=== PATIENT | male | born 1955 | race Caucasian/White ===

== ENCOUNTER 2019-01-01 12:58 | Inpatient (IN) | payer OTHER, MEDICARE ==
[~2019-01-01] VITALS: Ht 182.9 cm; Wt 95.0 kg
[~2019-01-01 12:58] MED LIST: ASCO500 PO; ASPI81CH PO; BUPR100ER PO; CYAN1000I IM; CYCL10 PO; Dyazide 37.5-21 EACH PO; FISH OIL 500 M1 EAC1; ISOMON20 PO; LAMO100 PO; METO25; NITR.6SL SL; Omeprazole20 M1 PO; QUET100 PO
[2019-01-01 13:20] LABS: Calcium, Ionized (POC) 1.12 mmol/L (1.10-1.46); Chloride (POC) 106 mmol/L (98-108); Glucose (ISTAT POC) 150 mg/dL (70-99); Hemoglobin (POC) 12.6 g/dL (13.5-17.5); Sodium (POC) 140 mmol/L (135-148); Total CO2 (POC) 21 mmol/L (21-32)
[2019-01-01 13:23] LABS: BASOPHILS ABSOLUTE AUTO 0.13 K/mm3 (0.00-0.23); BASOPHILS PERCENT AUTO 1 % (0-2); EOSINOPHILS ABSOLUTE AUTO 0.27 K/mm3 (0.00-0.68); EOSINOPHILS PERCENT AUTO 2 % (0-6); Hematocrit 36.8 % (37.0-53.0); Hemoglobin 12.1 g/dL (13.5-17.5); IMMATURE GRAN ABSOLUTE AUTO 0.07 K/mm3 (0.00-0.10); IMMATURE GRAN PERCENT AUTO 1 % (0-1); LYMPHOCYTES ABSOLUTE AUTO 5.36 K/mm3 (0.84-5.20); LYMPHOCYTES PERCENT AUTO 36 % (21-46); MONOCYTES ABSOLUTE AUTO 1.42 K/mm3 (0.16-1.47); MONOCYTES PERCENT AUTO 10 % (4-13); Mean Corpuscular HGB 27.4 pg (26.0-34.0); Mean Corpuscular HGB Conc 32.9 g/dL (31.5-36.5); Mean Corpuscular Volume 83 fL (80-100); Mean Platelet Volume 11.2 fL (9.1-12.4); NEUTROPHILS ABSOLUTE AUTO 7.55 K/mm3 (1.96-9.15); NEUTROPHILS PERCENT AUTO 51 % (41-73); Platelet Count 340 K/mm3 (150-400); RDW Standard Deviation 42.8 fL (35.1-46.3); Red Blood Cell Count 4.41 M/mm3 (4.30-5.90)
[2019-01-01 13:41] LABS: Prothrombin Time Results 10.6 Sec (9.7-11.5)
[2019-01-01 13:49] LABS: Alanine Aminotransfer (ALT/SGP 22 U/L (12-78); Albumin/Globulin Ratio 1.1 (0.8-1.8); Alk Phos 80 U/L (50-136); Anion Gap 11 mmol/L (6-16); Aspartate Aminotrans (AST/SGOT 12 U/L (12-37); Bilirubin, Total 0.3 mg/dL (0.1-1.0); Blood Urea Nitrogen 14 mg/dL (8-24); Bun/Creatinine Ratio 14.9 (12.0-20.0); CO2, Blood 21 mmol/L (21-32); Calcium, Blood 9.1 mg/dL (8.5-10.1); Chloride, Blood 110 mmol/L (98-108); Creatinine, Blood 0.94 mg/dL (0.60-1.20); Globulin, Blood 3.8 g/dL (2.2-4.0); Glomerular Filtration Rate >60 (60-); Glucose, Blood 146 mg/dL (70-99); Sodium, Blood 142 mmol/L (136-145); Total Protein, Blood 7.8 g/dL (6.4-8.2); Troponin I <0.015 ng/mL (0.000-0.040)
[2019-01-01] MEDS ORDERED: QUET300 PO (15:32)
--- NOTE | 2019-01-01 16:42 | NUR ---
Echocardiogram completed.
[2019-01-01] MEDS ORDERED: Flonase 0.05% N16 GM (17:13)
[2019-01-01] MEDS ORDERED: Dyazide 37.5-21 EACH PO (17:17)
[2019-01-01] MEDS ORDERED: Loratadine10 MG PO (17:18)
[2019-01-01] MEDS ORDERED: METO25 PO (17:19)
[2019-01-01] MEDS ORDERED: SIME80CH PO (17:20)
--- NOTE | 2019-01-01 18:40 | NUR ---
PT ARRIVED TO UNIT @ 1454, DENIES CP AND SOB. TR TO R RADIAL, SITE WNL PT DENIES PAIN. PT ARRIVED ON 6L O2 PER NC WITH 02 SAT 96%, O2 DECREASED TO 3L AND SATURATIONS MAINTAINED 95-97% AT WHICH TIME PT WAS PLACED ON RA. TR ASSESSED Q15 MINUTES X4, Q30 MINUTES X2, SITE REMAINED WNL. AT 1700 3 CC'S OF AIR FROM TR BAND REMOVED, AT 1710 AN ADDITIONAL 3 CC'S OF AIR WAS REMOVED, SITE BEGAN TO OOZE AND 3 CC'S OF AIR WAS REINSTILLED. TR BAND IN PLACE WITH 7 CC'S OF AIR.
--- NOTE | 2019-01-01 18:44 | NUR ---
PT C/O CHEST PRESSURE TO EPIGASTRIC AREA 05/09. PT VERY ANXIOUS APPEARING, RESTLESS IN BED, TAPPING FEET/LEGS. DR WADSWORTH NOTIFIED. HOME MED SEROQUEL ORDERED. PT W SOME HTN.
--- NOTE | 2019-01-01 19:30 | NUR ---
ASSUMED CARE OF PT, REPORT RCV'D FROM ERIK RN. PT ALERT AND ORIENTED. TR BAND ON RIGHT WRIST WITH ARMBOARD. RADIAL SIGHT OOZING, PER DAYSHIFT NURSE PT'S RADIAL SITE HAS CONSITENTLY OOZED REQUIRING AIR TO BE REINFLATED IN TR BAND. PT REMINDED TO KEEP RIGHT ARM STILL/STRAIGHT. RADIAL SITE CLEANED AND NEW ARMBOARD PLACED TO CONTINUE TO MONITOR. DISTAL PULSES/PALLOR WNL. PT IS FIDGETY AT BASELINE. REPORTS 1/10 EPIGASTRIC PAIN AND FEELS "ACHES" T/O BODY. KCL INFUSING AND NS @ 200 ML/HR UNTIL 0000. SEE FULL SHIFT ASSESSMENT.
--- NOTE | 2019-01-01 21:35 | NUR ---
PHONE CALL TO DR. SERRATO REGARDING PT'S CONTINUED "ACHE/PAIN" AND OOZING FROM RIGHT RADIAL SITE WITH TR BAND STILL IN PLACE. . PT REPORTS PAIN IN SHOULDERS AND UNCHANGED EPIGASTRIC PAIN. ORDERS FOR MAALOX, XANAX, NORVASC, AND NITROPASTE GIVEN WITH FENTANYL PRN IF NEEDED.
--- NOTE | 2019-01-02 01:47 | NUR ---
PT STILL C/O SHOULDER "DISCOMFORT" L>R. PT OFFERED WARM BLANKETS AND REPOSITIONING. PT STATES THAT HE "MIGHT JUST BE THE BED" AND DECLINED MEDICATION AT THIS TIME. TR BAND OFF, CLEAR DRESSING APPLIED. SITE SOFT WITH SMALL HEMATOMA, NO EVIDENCE OF BLEEDING, NO REPORTED TENDERNESS. DISTAL PULSES/PALLOR WNL.
[2019-01-02 03:25] LABS: BASOPHILS ABSOLUTE AUTO 0.04 K/mm3 (0.00-0.23); BASOPHILS PERCENT AUTO 0 % (0-2); EOSINOPHILS PERCENT AUTO 1 % (0-6); Hematocrit 33.2 % (37.0-53.0); Hemoglobin 10.7 g/dL (13.5-17.5); IMMATURE GRAN ABSOLUTE AUTO 0.04 K/mm3 (0.00-0.10); IMMATURE GRAN PERCENT AUTO 0 % (0-1); LYMPHOCYTES ABSOLUTE AUTO 2.69 K/mm3 (0.84-5.20); LYMPHOCYTES PERCENT AUTO 21 % (21-46); MONOCYTES ABSOLUTE AUTO 1.13 K/mm3 (0.16-1.47); MONOCYTES PERCENT AUTO 9 % (4-13); Mean Corpuscular HGB 26.6 pg (26.0-34.0); Mean Corpuscular HGB Conc 32.2 g/dL (31.5-36.5); Mean Corpuscular Volume 82 fL (80-100); Mean Platelet Volume 10.7 fL (9.1-12.4); NEUTROPHILS PERCENT AUTO 69 % (41-73); Platelet Count 264 K/mm3 (150-400); RDW Coefficient Variation 14.1 % (11.7-14.2); RDW Standard Deviation 42.5 fL (35.1-46.3); Red Blood Cell Count 4.03 M/mm3 (4.30-5.90)
[2019-01-02 03:41] LABS: Alanine Aminotransfer (ALT/SGP 47 U/L (12-78); Albumin, Blood 3.4 g/dL (3.4-5.0); Albumin/Globulin Ratio 1.1 (0.8-1.8); Alk Phos 74 U/L (50-136); Anion Gap 7 mmol/L (6-16); Aspartate Aminotrans (AST/SGOT 199 U/L (12-37); Bilirubin, Total 0.5 mg/dL (0.1-1.0); Blood Urea Nitrogen 10 mg/dL (8-24); Bun/Creatinine Ratio 11.7 (12.0-20.0); CO2, Blood 24 mmol/L (21-32); Calcium, Blood 8.2 mg/dL (8.5-10.1); Chloride, Blood 111 mmol/L (98-108); Creatinine, Blood 0.85 mg/dL (0.60-1.20); Globulin, Blood 3.2 g/dL (2.2-4.0); Glomerular Filtration Rate >60 (60-); Glucose, Blood 113 mg/dL (70-99); Potassium, Blood 3.4 mmol/L (3.5-5.5); Sodium, Blood 142 mmol/L (136-145); Total Protein, Blood 6.6 g/dL (6.4-8.2)
--- NOTE | 2019-01-02 06:02 | NUR ---
SHIFT SUMMARY PT REPORTS EPIGASTRIC AND SHOULDER PAIN AND APPEARED FIDGETY T/O NIGHT. PAIN WAS FINALLY RELIEVED WITH 25 MG IV FENTANYL AND PT ABLE TO REST. MORNING EKG SHOWS IMPROVEMENT FROM PRE-INTERVENTION EKG. RIGHT RADIAL ACCESS SITE SOFT/NON-TENDER WITH NO SIGNS OF OOZING. ARMBOARD REMAINS IN PLACE AND PT REMINDED TO KEEP WRIST STRAIGHT. VSS T/O SHIFT. 1000 ML OF CLEAR YELLOW URINARY OUTPUT. SEE PREVIOUS NOTES FROM THIS SHIFT. WILL REPORT TO DAYSHIFT NURSE.
--- NOTE | 2019-01-02 09:30 | NUR ---
PT SLEEPING THIS AM AT 0715, VSS. PT AWOKE AT 0830 WITH C/O PAIN 6/10 TO RIGHT UPPER ARM AND FOREARM. AREA FIRM AND SLIGHTLY SWOLLEN. LEFT ARM WNL. NO REDNESS OR WARMTH NOTED TO RIGHT ARM. PT DENIED C/O NUMBNESS/TINGLING TO RIGHT HAND. 2+ AXILLARY, BRACHIAL, AND RADIAL PULSE. DR WADSWORTH IN TO SEE PT WITHIN MIN OF PHONE CALL. FENT AND VENOUS DOPPLER ORDERED. RIGHT JOELLEN TO RIGHT ARM X30MIN PER DR HU. ULTRA SOUND TECH AT BEDSIDE NOW. FENT DID OFFER RELIEF.
--- NOTE | 2019-01-02 10:51 | NUR ---
ASSUMPTION OF CARE I ASSUMED CARE OF PT AT 0700. PT SLEEPING, VSS. AT APPROX 0830 PT AWOKE COMPLAINING OF ARM PAIN (SEE ARUN GRIGGS RN NOTE). PT A&O x4, DENIES CP/SOB. R ARM TENDER AND FIRM TO TOUCH, NO REDNESS OR WARMTH NOTED. JOELLEN WRAP APPLIED PER DR WADSWORTH, BANDAGE IN PLACE X30 MINUTES AND ELEVATED, REMOVED FOR APPROX 15 MINUTES FOR US AND THEN RE-APPLIED. PT VERBALIZES RELEIF WITH PRESSURE FROM JOELLEN BANDAGE. WARM BLANKETS APPLIED TO ARM. R ARM REMAINES WRAPPED AND ELEVATED AT THIS TIME. PT RESTING IN ROOM WITH EYES CLOSED, DENIES DISCOMFORT AT THIS TIME. DR WADSWORTH CALLED TO CHECK ON PT, WILL SEE THIS AFTERNOON.
--- NOTE | 2019-01-02 11:28 | NUR ---
PT COMPLAINS OF NAUSEA. DENIES CP/SOB, VSS. R ARM REMAINS TENDER. PT DECLINES SODA AND CRACKERS. EMESIS BAG PROVIDED. PROVIDER PLANS ON SEEING PT EARLY THIS AFTERNOON, WILL CALL PROVIDER IF NAUSEA WORSENS.
--- NOTE | 2019-01-02 12:42 | NUR ---
PT STS NAUSEA PERSISTS, DECLINES AVAILABLE ZOFRAN PRN. PT STS HE "JUST WANTS TO BE LEFT ALONE." PT RESTING WITH EYES CLOSED AT THIS TIME.
--- NOTE | 2019-01-02 13:48 | NUR ---
IN TO SEE PT AT APPROX 1315, PT ACCEPTED ZOFRAN FOR NAUSEA AT THIS TIME. PT STS HAS HEADACHE AND REQUESTS TYLENOL, PRN ADMINISTERED AT THIS TIME. DR WADSWORTH IN TO SEE PT AT 1345, POSSIBLE STATUS CHANGE.
--- NOTE | 2019-01-02 14:57 | NUR ---
ARRIVAL. PT ARRIVED TO UNIT APPROX. 1415 FROM ICU VIA WHEELCHIR. PEER STAFF WERE ABLE TO GET PT SETTLED INTO ROOM. ASSESSMENT FINDINGS REMAIN UNCHANED FROM PREVIOUSLY NOTED ASSESSMENT. ASSESSED PT RIGHT ARM. JOELLEN BANDAGE REMAINS IN PLACE. ARM SOFT WITH PALPITATION AND NON TENDER. PT REPORTS THIS ARM WAS HARD WITH PALPITATION THIS MORNING. PT CURRENTLY IN BED. BED IN LOW POSITION, CALL LIGHT IN REACH AND PT DENIES ANY NEEDS WILL CONTINUE TO MONITOR.
--- NOTE | 2019-01-02 15:26 | NUR ---
REPORT GIVEN TO [facility] RN AT APPROX 1415. PT TRANSPORTED BY WHEELCHAIR IN STABLE CONDITION TO [facility] @ APPROX 1430.
--- NOTE | 2019-01-02 17:46 | NUR ---
SHIFT SUMMARY PT PLESANT, COOPERATIVE AND USES CALL LIGHT APPROPRAITELY. PT REMAINS A&OX4. ASSESSMENT FINDINGS REMAIN UNCHANGED SINCE ARRIVAL TO UNIT. PT ABLE TO EAT SOME OF DINNER AND TOLERATED WELL. PT ABLE TO AMBULATE IN ROOOM AND TOLERATED WELL. FAMILY AT BEDSIDE INTERMITTENTLY. TEGADERM DRESSING REMAINS IN PLACE OVER RIGHT RADIAL SITE. RIGHT ARM REMAINS NON TENDER WITH PALPITATION AND SOFT. BED IN LOW POSITION, CALL LIGHT IN REACH AND PT DENIES ANY NEEDS. WILL CONTINUE TO MONITOR UNITL HANDOFF TO NIGHTSHIFT RN.
--- NOTE | 2019-01-03 04:42 | NUR ---
SHIFT SUMMARY: PATIENT RADIAL SITE IS C/D/I AND MUCH IMPROVED. PATIENT DENIES PAIN AND ALL VSS. PATIENT CALL LIGHT WITHIN REACH AND USED APPROPRIATLY, BED LOW AND LOCKED.
--- NOTE | 2019-01-03 07:00 | NUR ---
REPORT FROM MIGUEL DUNHAM. ASSUMED PT CARE.
--- NOTE | 2019-01-03 07:55 | NUR ---
VSS. ASSESSMENT CHARTED.
--- NOTE | 2019-01-03 08:55 | NUR ---
PT MEDICATED PER EMAR. NADN. DENIES PAIN.
--- NOTE | 2019-01-03 09:15 | NUR ---
PROVIDER AT BEDSIDE. PLAN TO DC PT TODAY.
--- NOTE | 2019-01-03 11:00 | NUR ---
BOTH IVS REMOVED AND DRESSINGS PLACED. PT TAKEN OFF TELE. SUPPLIES PROVIDED TO PT FOR SHOWER.
[2019-01-03] MEDS ORDERED: ASPI81CH PO (11:27)
[2019-01-03] MEDS ORDERED: ATOR40TA PO (11:28)
[2019-01-03] MEDS ORDERED: BRILINTA90 MG PO (11:29)
--- NOTE | 2019-01-03 11:55 | NUR ---
PT BACK TO BED FOLLOWING SHOWER. DRESSED IN STREET CLOTHES. STATES HE FEELS TERRIBLE AND IS DIZZY. VS CHARTED, CHARGE NURSE MADE AWARE OF HYPOTENSION. WILL CONT TO MONITOR PRIOR TO DC.
--- NOTE | 2019-01-03 12:50 | NUR ---
VSS. PT STATES HE FEELS MUCH BETTER. WILL CONT TO MONITOR. PLAN TO DC PT AROUND 1400 WHEN HIS FRIEND GETS HERE. PT AGREEABLE.
--- NOTE | 2019-01-03 14:16 | NUR ---
PT VSS. DC REVIEWED.
== END 2019-01-03 14:29 | disposition home or self-care (01) | DRG 247 ==
LOC: ER 12:58 → ICUW 12:59 → PCU 13:17 → ICUW 14:56 → PCU 01-02 14:35
PROVIDERS: Emergency Medicine; Internal Medicine Interventional Cardiology; ADMIT Internal Medicine Interventional Cardiology
PROC: 027034Z Dilation of Coronary Artery, One Artery with Drug-eluting Intraluminal Device, Percutaneous Approach (ICD-10-PCS; principal; 2019-01-01)
PROC: 02703ZZ Dilation of Coronary Artery, One Artery, Percutaneous Approach (ICD-10-PCS; 2019-01-01)
PROC: B2111ZZ Fluoroscopy of Multiple Coronary Arteries using Low Osmolar Contrast (ICD-10-PCS; 2019-01-01)
DX: I21.3 ST elevation (STEMI) myocardial infarction of unspecified site (principal); I25.10 Atherosclerotic heart disease of native coronary artery without angina pectoris; K22.70 Barrett's esophagus without dysplasia; G89.29 Other chronic pain; M54.9 Dorsalgia, unspecified; E78.5 Hyperlipidemia, unspecified; F31.9 Bipolar disorder, unspecified; I10 Essential (primary) hypertension; J44.9 Chronic obstructive pulmonary disease, unspecified; Z79.82 Long term (current) use of aspirin; Z87.891 Personal history of nicotine dependence
CPT/HCPCS: 36415; 80047; 80053; 84484; 85014; 85025; 85347; 85610; 85730; 93005; 93010; 93306; 93454; 93971; 96374; 96375; 99152; 99153; 99285-25; A9270; C1725; C1769; C1874; C1887; C1894; C9606; J0461; J1644; J2250; J2270; J2405; J3010; J3246; J3480; J7030; Q9967

== ENCOUNTER 2020-07-30 23:13 | Observation (INO) | payer OTHER ==
[~2020-07-30] VITALS: Ht 182.9 cm; Wt 90.6 kg
[~2020-07-30 23:13] MED LIST changes: +ATOR40TA PO; +BRILINTA90 MG PO; +Flonase 0.05% N16 GM; +Loratadine10 MG PO; +METO25 PO; +QUET300 PO; +SIME80CH PO
[2020-07-30 23:30] LABS: Calcium, Ionized (POC) 1.04 mmol/L (1.10-1.46); Chloride (POC) 105 mmol/L (98-108); Creatinine (POC) 1.3 mg/dL (0.8-1.3); Glucose (ISTAT POC) 163 mg/dL (70-99); Hemoglobin (POC) 10.2 g/dL (13.5-17.5); Potassium (POC) 3.5 mmol/L (3.5-5.5); Sodium (POC) 137 mmol/L (135-148); Total CO2 (POC) 21 mmol/L (21-32)
[2020-07-30 23:39] LABS: Hemoglobin 8.9 g/dL (13.5-17.5); Mean Corpuscular HGB 20.3 pg (26.0-34.0); Mean Corpuscular HGB Conc 29.7 g/dL (31.5-36.5); Mean Corpuscular Volume 69 fL (80-100); Mean Platelet Volume 10.3 fL (9.1-12.4); Platelet Count 363 K/mm3 (150-400); RDW Coefficient Variation 21.3 % (11.7-14.2); RDW Standard Deviation 52.1 fL (35.1-46.3); Red Blood Cell Count 4.38 M/mm3 (4.30-5.90); White Blood Cell Count 10.65 K/mm3 (4.00-11.30)
[2020-07-30 23:54] LABS: Alanine Aminotransfer (ALT/SGP 22 U/L (12-78); Albumin, Blood 3.7 g/dL (3.4-5.0); Albumin/Globulin Ratio 1.1 (0.8-1.8); Alk Phos 73 U/L (50-136); Anion Gap 8 mmol/L (6-16); Aspartate Aminotrans (AST/SGOT 12 U/L (12-37); Bilirubin, Total 0.3 mg/dL (0.1-1.0); Blood Urea Nitrogen 13 mg/dL (8-24); Bun/Creatinine Ratio 12.1 (12.0-20.0); CHOL/HDL RATIO 5.7; CO2, Blood 22 mmol/L (21-32); Calcium, Blood 8.1 mg/dL (8.5-10.1); Chloride, Blood 108 mmol/L (98-108); Cholesterol 189 mg/dL (50-200); Creatinine, Blood 1.07 mg/dL (0.60-1.20); Globulin, Blood 3.4 g/dL (2.2-4.0); Glomerular Filtration Rate >60 (60-); Glucose, Blood 155 mg/dL (70-99); HDL Cholesterol 33 mg/dL (>39); LDL/HDL RATIO 3.3; Low Density Lipoprotein Chol 110 mg/dL (0-110); Magnesium, Blood 2.3 mg/dL (1.6-2.4); Potassium, Blood 3.4 mmol/L (3.5-5.5); Sodium, Blood 138 mmol/L (136-145); Total Protein, Blood 7.1 g/dL (6.4-8.2); Triglycerides 232 mg/dL (30-160); Troponin I <0.015 ng/mL (0.000-0.040); Very Low Density Lipoprot Chol 46 mg/dL (6-32)
[2020-07-31 01:20] LABS: International Normalized Ratio 1.08; Prothrombin Time Results 11.5 Sec (9.7-11.5)
--- NOTE | 2020-07-31 05:59 | NUR ---
SHIFT SUMMARY PATIENT SLEPT WELL THRU NIGHT. NO C/O PAIN. VSS. ASSESSMENT IS CHARTED. WILL CONTINUE TO MONITOR.
--- NOTE | 2020-07-31 07:53 | NUR ---
Assumed care of pt at 0700. Bedside report received from Louis DUNHAM. Pt A&O x 4. Answers questions. Follows commands. Verbalizes needs. Plesant and cooperative with care. Pt on room air. SpO2 90% or greater. SR per monitor. BP stable. States chest pressure is intermittent. Bed in lowest position. Call light in reach. Pt denies need at this time.
[2020-07-31 08:01] LABS: BASOPHILS ABSOLUTE AUTO 0.07 K/mm3 (0.00-0.23); BASOPHILS PERCENT AUTO 1 % (0-2); EOSINOPHILS PERCENT AUTO 1 % (0-6); Hematocrit 30.4 % (37.0-53.0); Hemoglobin 8.7 g/dL (13.5-17.5); IMMATURE GRAN ABSOLUTE AUTO 0.04 K/mm3 (0.00-0.10); IMMATURE GRAN PERCENT AUTO 0 % (0-1); LYMPHOCYTES ABSOLUTE AUTO 1.87 K/mm3 (0.84-5.20); LYMPHOCYTES PERCENT AUTO 16 % (21-46); MONOCYTES ABSOLUTE AUTO 1.22 K/mm3 (0.16-1.47); MONOCYTES PERCENT AUTO 10 % (4-13); Mean Corpuscular HGB 20.3 pg (26.0-34.0); Mean Corpuscular HGB Conc 28.6 g/dL (31.5-36.5); Mean Corpuscular Volume 71 fL (80-100); Mean Platelet Volume 10.2 fL (9.1-12.4); NEUTROPHILS ABSOLUTE AUTO 8.48 K/mm3 (1.96-9.15); NEUTROPHILS PERCENT AUTO 72 % (41-73); Platelet Count 331 K/mm3 (150-400); RDW Coefficient Variation 21.2 % (11.7-14.2); RDW Standard Deviation 53.1 fL (35.1-46.3); Red Blood Cell Count 4.29 M/mm3 (4.30-5.90); White Blood Cell Count 11.78 K/mm3 (4.00-11.30)
[2020-07-31 08:23] LABS: Alanine Aminotransfer (ALT/SGP 21 U/L (12-78); Albumin, Blood 3.4 g/dL (3.4-5.0); Alk Phos 74 U/L (50-136); Anion Gap 4 mmol/L (6-16); Aspartate Aminotrans (AST/SGOT 10 U/L (12-37); Bilirubin, Total 0.4 mg/dL (0.1-1.0); Blood Urea Nitrogen 11 mg/dL (8-24); Bun/Creatinine Ratio 11.1 (12.0-20.0); CO2, Blood 25 mmol/L (21-32); CPK Creatine Kinase 83 U/L (39-308); Calcium, Blood 8.5 mg/dL (8.5-10.1); Chloride, Blood 108 mmol/L (98-108); Creatinine, Blood 0.99 mg/dL (0.60-1.20); Globulin, Blood 3.4 g/dL (2.2-4.0); Glomerular Filtration Rate >60 (60-); Glucose, Blood 132 mg/dL (70-99); Potassium, Blood 3.8 mmol/L (3.5-5.5); Sodium, Blood 137 mmol/L (136-145); Total Protein, Blood 6.8 g/dL (6.4-8.2); Troponin I <0.015 ng/mL (0.000-0.040)
--- NOTE | 2020-07-31 11:37 | NUR ---
Pt has been having constant chest pain unchanged with fentanyl or nitroglycerin. Dr Underwood notified. Plan to continue to monitor pt. Echocardiogram has been obtained as well as repeat EKG. Dr Underwood also has been in to see the patinent. Plan to keep pt NPO and maintain heparin drip at this time. Provider will speak to fresco artist and evaluate if pt will receive angiogram or not.
--- NOTE | 2020-07-31 12:47 | NUR ---
ECHOCARDIOGRAM COMPLETED
--- NOTE | 2020-07-31 13:35 | NUR ---
Pt had episode of nausea, stated "I feel like ". Treated with zofran and simethicone. Notified Dr Underwood, who was present in unit. No new updates on plan of care. On reassessment, meds relieved pt's nausea. At this time, pt states he has no chest pain.
--- NOTE | 2020-07-31 14:25 | NUR ---
ASSUMED CARE OF PT, REPORT RCV'D FROM ROLY FORD. PT ALERT AND ORIENTED, CURRENTLY ON 2L NC WITH SATS>90%. HEPARIN GTT INFUSING AT 15 U/KG/HR (93 KG DOSE WT). NS @ 75 ML/HR [id number]. PT DENIES CHEST PAIN/PRESSURE AT THIS TIME. RESTING COMFORTABLY. BED LOW/LOCKED POSITION, DOOR OPEN, CALL LIGHT IN HAND.
[2020-07-31 15:52] LABS: CPK Creatine Kinase 85 U/L (39-308); Troponin I <0.015 ng/mL (0.000-0.040)
--- NOTE | 2020-07-31 17:02 | NUR ---
Assumed care from Eric DUNHAM. Patient independent in bed and repositions self for comfort. He is able to communicate his needs. He is on 2L O2 via NC and sats >90%. He used urinal and had 775 out in urine. Family remains at bedside but going home soon. Talked with Dr Turcios and he is PCU status awaiting a bed. His saline finished and is SL'd now. He continues on Heparing gtt at 15 unit/kg/hr. Patient states no current needs.
--- NOTE | 2020-07-31 18:33 | NUR ---
Dr Underwood called and stated patient could eat and he denies any appetite. He will be NPO again incase He has problems and needs procedure in am. Heparin remains infusing at 15 units/kg/hr. VSS See EMR. Patient states no current needs.
--- NOTE | 2020-08-01 04:51 | NUR ---
SHIFT SUMMARY PATIENT HAS SLEPT WELL THRU NIGHT. NO C/O PAIN, NAUSEA, DIZZINESS. ASSESSMENT IS CHARTED. VSS. WILL CONTINUE TO MONITOR.
[2020-08-01 04:52] LABS: Hematocrit 30.8 % (37.0-53.0); Hemoglobin 9.1 g/dL (13.5-17.5)
--- NOTE | 2020-08-01 09:11 | NUR ---
PT AM ASSESSEMENT IS THAT HE IS A/O, NO CHEST PAIN, NO SOB ON RA, NO N/V. PT IS NPO EXCEPT SIPS FOR AM MED IN PREP FOR DIALYSIS BIOMED TECHNICIAN APPOINTMENT. PT VSS. VOIDING.
--- NOTE | 2020-08-01 09:30 | NUR ---
DR MCKINNEY IN AND HEP TO BE D/C AND PT MOVED TO MED/TELE STATUS. PT CONT TO DENIE PAIN OR DISTRESS. THERE ARE NO CURRENT PLANS FOR F/U ANGIOGRAM.
--- NOTE | 2020-08-01 13:10 | NUR ---
PT HOME D/C INSTRUCTIONS GIVEN. [facility] CALLED FOR RX ON [facility]. PT IV SITES R AND L AC D/C AND SITES INTACT.
--- NOTE | 2020-08-01 14:50 | NUR ---
1325 PT DISCHARGED PER W/C TO [facility] PT ENTRANCE TO FAMILY CAR PER TOM STEELEA.
== END 2020-08-01 13:25 | disposition home or self-care (01) ==
LOC: ER 23:13 → ICUW 23:14 → ICUE 07-31 02:36 → ER 07-31 02:36 → ICUE 07-31 02:50 → ICUW 07-31 02:50 → ICUE 07-31 15:15
PROVIDERS: Emergency Medicine; Internal Medicine Cardiovascular Disease; ADMIT Internal Medicine
DX: R07.89 Other chest pain (principal); I25.10 Atherosclerotic heart disease of native coronary artery without angina pectoris; I10 Essential (primary) hypertension; J44.9 Chronic obstructive pulmonary disease, unspecified; E78.5 Hyperlipidemia, unspecified; K22.70 Barrett's esophagus without dysplasia; I25.2 Old myocardial infarction; E87.6 Hypokalemia; D50.9 Iron deficiency anemia, unspecified; Z79.01 Long term (current) use of anticoagulants; Z95.5 Presence of coronary angioplasty implant and graft
CPT/HCPCS: 36415; 71045; 80047; 80053; 80061; 82550; 83735; 83880; 84484; 85014; 85018; 85025; 85027; 85610; 85730; 86850; 86900; 86901; 93005; 93010; 93306; 96365; 96366; 96375; 96376; 99285-25; A9270; G0378; J1644; J2270; J2405; J3010; J7030

== ENCOUNTER 2021-10-25 15:57 | Inpatient (IN) | payer OTHER ==
[~2021-10-25] VITALS: Ht 182.9 cm; Wt 86.7 kg
[2021-10-25 16:25] LABS: BASOPHILS ABSOLUTE AUTO 0.03 K/mm3 (0.00-0.23); BASOPHILS PERCENT AUTO 1 % (0-2); EOSINOPHILS PERCENT AUTO 2 % (0-6); IMMATURE GRAN ABSOLUTE AUTO 0.02 K/mm3 (0.00-0.10); IMMATURE GRAN PERCENT AUTO 0 % (0-1); LYMPHOCYTES ABSOLUTE AUTO 0.72 K/mm3 (0.84-5.20); LYMPHOCYTES PERCENT AUTO 14 % (21-46); MONOCYTES ABSOLUTE AUTO 0.59 K/mm3 (0.16-1.47); MONOCYTES PERCENT AUTO 11 % (4-13); Mean Corpuscular HGB 15.8 pg (26.0-34.0); Mean Corpuscular HGB Conc 26.7 g/dL (31.5-36.5); Mean Corpuscular Volume 59 fL (80-100); NEUTROPHILS ABSOLUTE AUTO 3.75 K/mm3 (1.96-9.15); NEUTROPHILS PERCENT AUTO 72 % (41-73); Platelet Count 194 K/mm3 (150-400); RDW Coefficient Variation 21.2 % (11.7-14.2); RDW Standard Deviation 43.6 fL (35.1-46.3); Red Blood Cell Count 2.91 M/mm3 (4.30-5.90); White Blood Cell Count 5.21 K/mm3 (4.00-11.30)
[2021-10-25 16:30] LABS: Hemoglobin 4.6 g/dL (13.5-17.5)
[2021-10-25 16:31] LABS: Hematocrit 17.2 % (37.0-53.0)
[2021-10-25 16:38] LABS: Albumin, Blood 3.3 g/dL (3.4-5.0); Albumin/Globulin Ratio 1.1 (0.8-1.8); Bilirubin, Total 0.8 mg/dL (0.1-1.0); Bun/Creatinine Ratio 13.3 (12.0-20.0); Calcium, Blood 8.9 mg/dL (8.5-10.1); Creatinine, Blood 0.83 mg/dL (0.60-1.20); Potassium, Blood 3.3 mmol/L (3.5-5.5); Total Protein, Blood 6.3 g/dL (6.4-8.2)
[2021-10-25 18:46] LABS: Percent Saturation 2.3 % (20.0-50.0)
[2021-10-26 03:41] LABS: BASOPHILS ABSOLUTE AUTO 0.04 K/mm3 (0.00-0.23); BASOPHILS PERCENT AUTO 1 % (0-2); EOSINOPHILS PERCENT AUTO 2 % (0-6); Hematocrit 21.5 % (37.0-53.0); Hemoglobin 6.1 g/dL (13.5-17.5); IMMATURE GRAN ABSOLUTE AUTO 0.02 K/mm3 (0.00-0.10); IMMATURE GRAN PERCENT AUTO 0 % (0-1); LYMPHOCYTES ABSOLUTE AUTO 0.79 K/mm3 (0.84-5.20); LYMPHOCYTES PERCENT AUTO 17 % (21-46); MONOCYTES ABSOLUTE AUTO 0.63 K/mm3 (0.16-1.47); MONOCYTES PERCENT AUTO 14 % (4-13); Mean Corpuscular HGB 18.2 pg (26.0-34.0); Mean Corpuscular HGB Conc 28.4 g/dL (31.5-36.5); Mean Corpuscular Volume 64 fL (80-100); NEUTROPHILS ABSOLUTE AUTO 2.98 K/mm3 (1.96-9.15); NEUTROPHILS PERCENT AUTO 65 % (41-73); NRBC ABSOLUTE 0.02 K/mm3 (0.00-0.02); NRBC Auto 0.4 /100 WBC (0.0-0.2); Platelet Count 181 K/mm3 (150-400); RDW Coefficient Variation 24.4 % (11.7-14.2); RDW Standard Deviation 54.5 fL (35.1-46.3); Red Blood Cell Count 3.35 M/mm3 (4.30-5.90); White Blood Cell Count 4.56 K/mm3 (4.00-11.30)
[2021-10-26 04:01] LABS: Albumin, Blood 3.1 g/dL (3.4-5.0); Albumin/Globulin Ratio 1.1 (0.8-1.8); Bilirubin, Total 2.1 mg/dL (0.1-1.0); Bun/Creatinine Ratio 15.8 (12.0-20.0); Calcium, Blood 8.4 mg/dL (8.5-10.1); Creatinine, Blood 0.7 mg/dL (0.60-1.20); Globulin, Blood 2.7 g/dL (2.2-4.0); Potassium, Blood 3.5 mmol/L (3.5-5.5); Total Protein, Blood 5.8 g/dL (6.4-8.2)
--- NOTE | 2021-10-26 05:48 | NUR ---
SHIFT SUMMARY ASSUMED CARE OF PT AT 0022. PT IS A/OX4. HEART SOUDS REGULAR. LUNG SOUNDS HAVE CRACKLES AT THE BASES. PT WORE 2L NC DUE TO DESATURATION WHILE SLEEPING. PT SKIN IS VERY PALE. PT RECEIVED TWO UNITS OF PRBC IN ER AND TWO ON THE FLOOR. PT DENIES PAIN. ABD IS DISTENDED AND FIRM. PT WAS CONTIENT WITH URINAL DURING THE NIGHT. PT MOOD IS WITHDRAWN AND AFFECT FLAT. PT JUST WANTED TO SLEEP AFTER FINDING OUT DIAGNOSIS.
[2021-10-26 09:05] LABS: Hematocrit 25.7 % (37.0-53.0); Hemoglobin 7.5 g/dL (13.5-17.5)
[2021-10-26 09:27] LABS: Cancer Antigen 19-9 18.2 U/mL (2.0-37.0)
[2021-10-26 11:52] LABS: IMMATURE RETIC FRACTION 19.9 % (2.3-16.0); RETIC HGB EQUIVALENT 14.8 pg (28.20-36.60); RETICULOCYTE ABSOLUTE 0.0284 M/mm3 (0.0200-0.1100); RETICULOCYTE COUNT PERCENT 0.72 % (0.50-2.50)
[2021-10-26 15:08] LABS: Hematocrit 26.1 % (37.0-53.0); Hemoglobin 7.8 g/dL (13.5-17.5)
--- NOTE | 2021-10-26 18:59 | NUR ---
SHIFT SUMMARY: NO ACUTE CHANGES T/OUT SHIFT. PT CONTINUES A&Ox4, COOPERATIVE WITH CARE, SLEEPS OFTEN. PT REPORTS IMPROVEMENT TO SOB AND CHEST PAIN POST TRANSFUSIONS, MAINTAINS SATS >93% ON RA, SINUS RHYTHM. PT STATES HIS WEAKNESS HAS BEEN ONGOING OVER THE PAST 6 MONTHS OR SO, BUT WORSENING OVER THE PAST 2-3 MONTHS ALONG WITH FEELING FULL W/MINIMAL INTAKE ACCOMPANIED WITH WEIGHT LOSS OF APPROX 20 LBS. ABDOMEN IS FIRM, DISTENDED, TENDER TO TOUCH. PT USING URINAL IN BED W/OUT DIFFICULTY. PT REPOSITIONS SELF. PALLOR HAS BEEN NOTED TO ALSO BE IMPROVING. PT AWARE OF NEED FOR STOOL SAMPLE. AT THIS TIME, PLAN IS FOR PT TO BE NPO AT MIDNIGHT FOR BIOPSY ATTEMPT TOMORROW. PT RESTING QUIETLY IN BED WITH LIGHTS LOW, CALL LIGHT WITHIN REACH.
[2021-10-27 04:55] LABS: Hematocrit 25.5 % (37.0-53.0); Hemoglobin 7.4 g/dL (13.5-17.5); Mean Corpuscular HGB 18.9 pg (26.0-34.0); Mean Corpuscular Volume 65 fL (80-100); Platelet Count 177 K/mm3 (150-400); RDW Coefficient Variation 25.8 % (11.7-14.2); RDW Standard Deviation 58.4 fL (35.1-46.3); Red Blood Cell Count 3.91 M/mm3 (4.30-5.90); White Blood Cell Count 4.83 K/mm3 (4.00-11.30)
[2021-10-27 05:11] LABS: Bun/Creatinine Ratio 7.7 (12.0-20.0); Calcium, Blood 8.7 mg/dL (8.5-10.1); Creatinine, Blood 0.78 mg/dL (0.60-1.20); Potassium, Blood 3.1 mmol/L (3.5-5.5)
--- NOTE | 2021-10-27 06:09 | NUR ---
NO ACUTE EVENTS OVERNIGHT. PT IS NPO FOR PLANNED EGD TODAY. NO COMPLAINTS OF PAIN BEYOND THAT OF MINOR TO MODERATE ABDOMINAL PAIN FOR WHICH PT DENIES NEED FOR ANY ANALGESICS.
[2021-10-27 10:26] LABS: Influenza A, PCR NEGATIVE (NEGATIVE); Influenza B, PCR NEGATIVE (NEGATIVE); Resp Syncytial Virus, PCR NEGATIVE (NEGATIVE); SARS-Cov-2 (COVID-19) PCR, MMC NEGATIVE (NEGATIVE)
--- NOTE | 2021-10-27 11:59 | NUR ---
INTO SDS VIA GURNEY FROM PCU ROOM. ROOM AIR. ALERT AND ORIENTED X4. History, Chart, Medications and Allergies reviewed before start of procedure.Patient confirms NPO status and agrees with scheduled surgery. POTASSIUM PAUSED FOR PROCEDURE PER DR. MARIE REQUEST.
--- NOTE | 2021-10-27 12:09 | NUR ---
10/27/21 1209 Sylvia Mccullough History, Chart, Medications and Allergies reviewed before start of procedure. 3-LEAD EKG REVIEWED WITH PHYSICIAN PRIOR TO START OF PROCEDURE. MONITOR INTACT WITH CONTINUOUS PULSE OXIMETRY AND INTERMITTENT BP. O2 VIA N/C INTACT THROUGHOUT SEDATION/PROCEDURE. See Anesthesia record.
[2021-10-27 13:28] LABS: Hematocrit 26.1 % (37.0-53.0); Hemoglobin 7.6 g/dL (13.5-17.5)
--- NOTE | 2021-10-27 13:37 | NUR ---
PT'S DAUGHTER WAS NOTED TO BE PRESSING BUTTONS ON IV PUMP THAT WAS INFUSING POTASSIUM. DR KNUTSON CONSULTED IV POTASSIUM CHANGED TO ORAL THAT WILL BE ADMINISTERED PRIOR TO DC
[2021-10-27] MEDS ORDERED: DOCU100 PO (13:59)
[2021-10-27] MEDS ORDERED: FERSU300 PO (14:00)
[2021-10-27] MEDS ORDERED: SENN187 PO (14:00)
== END 2021-10-27 15:57 | disposition home or self-care (01) | DRG 437 ==
LOC: ER 15:57 → PCU 20:33
PROVIDERS: Family Medicine; Hospitalist; Physician Assistant; Surgery; ADMIT Internal Medicine
PROC: 30233N1 Transfusion of Nonautologous Red Blood Cells into Peripheral Vein, Percutaneous Approach (ICD-10-PCS; principal; 2021-10-25)
PROC: 0DB98ZX Excision of Duodenum, Via Natural or Artificial Opening Endoscopic, Diagnostic (ICD-10-PCS; 2021-10-27)
DX: C22.1 Intrahepatic bile duct carcinoma (principal); D50.9 Iron deficiency anemia, unspecified; Z20.822 Contact with and (suspected) exposure to COVID-19; J44.9 Chronic obstructive pulmonary disease, unspecified; I10 Essential (primary) hypertension; E78.5 Hyperlipidemia, unspecified; I25.10 Atherosclerotic heart disease of native coronary artery without angina pectoris; M54.9 Dorsalgia, unspecified; G89.29 Other chronic pain; F60.9 Personality disorder, unspecified; B18.2 Chronic viral hepatitis C; K76.0 Fatty (change of) liver, not elsewhere classified; E87.6 Hypokalemia; I51.7 Cardiomegaly; Z90.49 Acquired absence of other specified parts of digestive tract; Z95.5 Presence of coronary angioplasty implant and graft; Z87.891 Personal history of nicotine dependence; Z79.82 Long term (current) use of aspirin; Z79.899 Other long term (current) drug therapy; I25.2 Old myocardial infarction
CPT/HCPCS: 0241U; 36415; 36430; 71045; 74177; 80048; 80053; 82378; 82728; 83540; 83550; 83880; 84132; 84484; 85014; 85018; 85025; 85027; 85045; 86301; 86850; 86900; 86901; 86923; 93005; 93010; 94760; 96365; 96366; 99285-25; A9270; J2916; J3480; J7030; J7040; J7120; P9016; Q9967

== ENCOUNTER 2021-11-18 12:39 | Inpatient (IN) | payer OTHER ==
[~2021-11-18] VITALS: Ht 182.9 cm; Wt 81.7 kg
[~2021-11-18 12:39] MED LIST changes: +DOCU100 PO; +FERSU300 PO; +SENN187 PO
[2021-11-18 13:07] LABS: BASOPHILS ABSOLUTE AUTO 0.01 K/mm3 (0.00-0.23); BASOPHILS PERCENT AUTO 0 % (0-2); EOSINOPHILS ABSOLUTE AUTO 0.07 K/mm3 (0.00-0.68); EOSINOPHILS PERCENT AUTO 1 % (0-6); IMMATURE GRAN ABSOLUTE AUTO 0.06 K/mm3 (0.00-0.10); IMMATURE GRAN PERCENT AUTO 1 % (0-1); LYMPHOCYTES ABSOLUTE AUTO 0.54 K/mm3 (0.84-5.20); LYMPHOCYTES PERCENT AUTO 10 % (21-46); MONOCYTES ABSOLUTE AUTO 0.65 K/mm3 (0.16-1.47); MONOCYTES PERCENT AUTO 12 % (4-13); NEUTROPHILS ABSOLUTE AUTO 4.15 K/mm3 (1.96-9.15); NEUTROPHILS PERCENT AUTO 76 % (41-73); Platelet Count 262 K/mm3 (150-400); White Blood Cell Count 5.48 K/mm3 (4.00-11.30)
[2021-11-18 13:35] LABS: Albumin, Blood 2.3 g/dL (3.4-5.0); Albumin/Globulin Ratio 0.7 (0.8-1.8); Bilirubin, Total 8.2 mg/dL (0.1-1.0); Bun/Creatinine Ratio 22.6 (12.0-20.0); Calcium, Blood 8.1 mg/dL (8.5-10.1); Creatinine, Blood 0.66 mg/dL (0.60-1.20); Globulin, Blood 3.2 g/dL (2.2-4.0); Potassium, Blood 3.3 mmol/L (3.5-5.5); Total Protein, Blood 5.5 g/dL (6.4-8.2)
[2021-11-18 14:20] LABS: International Normalized Ratio 3.43; Prothrombin Time Results 33.2 Sec (9.7-11.5)
[2021-11-18 14:34] LABS: Albumin, Blood 2.3 g/dL (3.4-5.0); Albumin/Globulin Ratio 0.7 (0.8-1.8); Bilirubin, Direct 7.2 mg/dL (0.0-0.3); Bilirubin, Total 8.4 mg/dL (0.1-1.0); Bun/Creatinine Ratio 24.4 (12.0-20.0); Calcium, Blood 8.2 mg/dL (8.5-10.1); Creatinine, Blood 0.62 mg/dL (0.60-1.20); Globulin, Blood 3.2 g/dL (2.2-4.0); Potassium, Blood 3.4 mmol/L (3.5-5.5); Total Protein, Blood 5.5 g/dL (6.4-8.2)
[2021-11-18 14:36] LABS: Mean Corpuscular HGB 21.3 pg (26.0-34.0); Mean Corpuscular HGB Conc 31.4 g/dL (31.5-36.5); Mean Corpuscular Volume 68 fL (80-100)
[2021-11-18 14:38] LABS: Hemoglobin 4.9 g/dL (13.5-17.5)
[2021-11-18 14:39] LABS: Hematocrit 15.6 % (37.0-53.0)
[2021-11-18 14:43] LABS: Influenza A, PCR NEGATIVE (NEGATIVE); Influenza B, PCR NEGATIVE (NEGATIVE); Resp Syncytial Virus, PCR NEGATIVE (NEGATIVE); SARS-Cov-2 (COVID-19) PCR, MMC NEGATIVE (NEGATIVE)
[2021-11-18 17:53] LABS: Hemoglobin 5.3 g/dL (13.5-17.5)
[2021-11-18 17:55] LABS: Hematocrit 16.9 % (37.0-53.0)
--- NOTE | 2021-11-18 18:39 | NUR ---
TOA:1825, WT:185.3, VITALS DONE, CALL LIGHT IN REACH RN WITH PT NOW
--- NOTE | 2021-11-18 19:33 | NUR ---
TRANSFUSION: BLOOD IS INFUSING AT 150ML/HR. LUNGS ARE CLEAR VSS. TRANSFUSION REACTION EDU. IS GIVEN. PATIENT IS HUMERA TRANSFUSION WELL.
--- NOTE | 2021-11-19 04:51 | NUR ---
SHIFT SUMMARY: PATIENT TOLERATED 3 UNITS TRANSFUSED WHILE ON MEDICAL UNIT, WELL. PER REPORT 1 UNIT WAS GIVEN IN THE ER PER REPORT. NO S/S OF REACTION. PAIN IN UPPER ABD. AT START OF SHIFT WAS MEDICATED WITH TORADOL. PATIENT HAD GOOD EFFECT. ABLE TO EAT 100 % OF DINNER. PATIENT REPORTED POOR APPETITE FOR WEEKS. PATIENT WAS WOKEN FROM SLEEP WITH SHARP SHOOTING PAIN IN RIGHT GROIN AND RIGHT GROIN. TORADOL WAS AGAIN GIVEN WITH GOOD EFFECT. CONSULTS WERE CALLED TO DR DE LA PAZ AND PATRICIA. PATIENT HAS BEEN NPO SINCE 299 FOR POSSIBLE BILIARY STENT PLACEMENT WITH DR DE LA PAZ.
[2021-11-19 05:22] LABS: BASOPHILS ABSOLUTE AUTO 0.04 K/mm3 (0.00-0.23); BASOPHILS PERCENT AUTO 1 % (0-2); EOSINOPHILS ABSOLUTE AUTO 0.18 K/mm3 (0.00-0.68); EOSINOPHILS PERCENT AUTO 3 % (0-6); IMMATURE GRAN ABSOLUTE AUTO 0.03 K/mm3 (0.00-0.10); IMMATURE GRAN PERCENT AUTO 1 % (0-1); LYMPHOCYTES ABSOLUTE AUTO 0.68 K/mm3 (0.84-5.20); LYMPHOCYTES PERCENT AUTO 11 % (21-46); MONOCYTES ABSOLUTE AUTO 0.65 K/mm3 (0.16-1.47); MONOCYTES PERCENT AUTO 11 % (4-13); Mean Corpuscular HGB 24.4 pg (26.0-34.0); Mean Corpuscular HGB Conc 33.3 g/dL (31.5-36.5); NEUTROPHILS ABSOLUTE AUTO 4.62 K/mm3 (1.96-9.15); NEUTROPHILS PERCENT AUTO 75 % (41-73); NRBC ABSOLUTE 0.02 K/mm3 (0.00-0.02); NRBC Auto 0.3 /100 WBC (0.0-0.2); Platelet Count 234 K/mm3 (150-400); RDW Coefficient Variation 27.6 % (11.7-14.2); RDW Standard Deviation 70.8 fL (35.1-46.3); Red Blood Cell Count 3.28 M/mm3 (4.30-5.90)
[2021-11-19 05:27] LABS: Mean Corpuscular Volume 73 fL (80-100)
[2021-11-19 05:39] LABS: International Normalized Ratio 1.34; Prothrombin Time Results 13.8 Sec (9.7-11.5)
[2021-11-19 05:59] LABS: Albumin, Blood 2.2 g/dL (3.4-5.0); Albumin/Globulin Ratio 0.7 (0.8-1.8); Bilirubin, Total 10.4 mg/dL (0.1-1.0); Calcium, Blood 8.5 mg/dL (8.5-10.1); Creatinine, Blood 0.67 mg/dL (0.60-1.20); Globulin, Blood 3.1 g/dL (2.2-4.0); Potassium, Blood 3.7 mmol/L (3.5-5.5); Total Protein, Blood 5.3 g/dL (6.4-8.2)
[2021-11-19 11:38] LABS: Hematocrit 26.2 % (37.0-53.0); Hemoglobin 8.6 g/dL (13.5-17.5)
[2021-11-19 17:34] LABS: Hematocrit 24.7 % (37.0-53.0); Hemoglobin 8.4 g/dL (13.5-17.5)
--- NOTE | 2021-11-19 18:09 | NUR ---
SHIFT SUMMARY PATIENT IS ALERT AND ORIENTED. PATIENT HAS HAD NO ACUTE EVENTS THIS SHIFT. PATIENTS HGB WENT UP TO 8.6 THIS SHIFT AFTER RECEIVING BLOOD. PATIENT HAS LOWER BACK PAIN ONCE THIS WEEK, MEDICATED ONCE PER EMAR. VITAL SIGNS REVIEWED. PATIENT HAS NO COMPLAINTS OF NAUSEA, VOMITTING, OR SOB THIS SHIFT.
[2021-11-19 22:55] LABS: Hematocrit 24.6 % (37.0-53.0); Hemoglobin 8.2 g/dL (13.5-17.5)
--- NOTE | 2021-11-20 06:33 | NUR ---
SHIFT SUMMARY: PATIENT IS A&OX4, RETAINING URINE. REPORTING INCREASED ABD PAIN 8/. ABD IS VISIBLY MORE DISTENDED THIS AM. IV DILAUDID WAS GIVEN FOR PAIN WITH GOOD EFFECT. DR SINGLETARY WAS CALLED AND ORDER TO STRAIGHT CATH X1 IF UNABLE TO VOID. STRAIGHT CATH WAS DONE AND 425MLS OF A COLA COLORED URINE. PATIENT TOLERATED PROCEEDURE FAIR. IF PATIENT RETAINS OVER 450 MLS. EARLIER IN SHIFT PAIN WAS IN THE RIGHT GROIN, LOWER ABD AND RIGHT TESICLE. R TESTICLE IS SWOLLEN AND PAINFULL.
[2021-11-20] MEDS ORDERED: FAMO20 PO ×2 (11:19)
[2021-11-20] MEDS ORDERED: Compro25 MG PR ×2 (11:19)
[2021-11-20] MEDS ORDERED: ZOLP10 PO ×2 (11:20)
[2021-11-20] MEDS ORDERED: BUPR150ER PO ×2 (11:21)
--- NOTE | 2021-11-20 15:36 | NUR ---
SHIFT SUMMARY PATIENT IS ALERT AND ORIENTED. PATIENT HAS BEEN PLEASENT AND COOPERATIVE WITH CARE. PATIENT HAS HAD NO ACUTE EVENTS THIS SHIFT. VITAL SIGNS REVIEWED. IV REMOVED WNL. PATIENT HAD LAST IRON INFUSION PRIOR TO DISCHARGE. PATIENT UNDERSTOOD DISCHARGE INSTRUCTIONS. PATIENT WAS DISCHARGED HOME WITH GIRLFRIEND TRANSPORTING.
== END 2021-11-20 15:24 | disposition home or self-care (01) | DRG 435 ==
LOC: ER 12:39 → MEDS 16:29
PROVIDERS: Internal Medicine Gastroenterology; Student in an Organized Health Care Education/Training Program; ADMIT Internal Medicine
PROC: 30233N1 Transfusion of Nonautologous Red Blood Cells into Peripheral Vein, Percutaneous Approach (ICD-10-PCS; principal; 2021-11-18)
DX: C22.1 Intrahepatic bile duct carcinoma (principal); K83.1 Obstruction of bile duct; D68.9 Coagulation defect, unspecified; R18.8 Other ascites; C78.89 Secondary malignant neoplasm of other digestive organs; Z20.822 Contact with and (suspected) exposure to COVID-19; Z66 Do not resuscitate; Z51.5 Encounter for palliative care; J44.9 Chronic obstructive pulmonary disease, unspecified; I10 Essential (primary) hypertension; E78.00 Pure hypercholesterolemia, unspecified; K40.90 Unilateral inguinal hernia, without obstruction or gangrene, not specified as recurrent; K22.70 Barrett's esophagus without dysplasia; I25.10 Atherosclerotic heart disease of native coronary artery without angina pectoris; G89.29 Other chronic pain; M54.9 Dorsalgia, unspecified; F31.9 Bipolar disorder, unspecified; D63.0 Anemia in neoplastic disease; B19.20 Unspecified viral hepatitis C without hepatic coma; E87.6 Hypokalemia; E88.09 Other disorders of plasma-protein metabolism, not elsewhere classified; D50.9 Iron deficiency anemia, unspecified; I25.2 Old myocardial infarction; Z90.49 Acquired absence of other specified parts of digestive tract; Z95.5 Presence of coronary angioplasty implant and graft; Z87.891 Personal history of nicotine dependence; Z79.82 Long term (current) use of aspirin; Z79.899 Other long term (current) drug therapy
CPT/HCPCS: 0241U; 36415; 36430; 71046; 76705; 80053; 82140; 82248; 82272; 84484; 85014; 85018; 85025; 85610; 86301; 86850; 86900; 86901; 86923; 93005; 93010; 99285-25; A9270; J1170; J1885; J2916; J3430; J7030; J7040; P9016

== ENCOUNTER 2021-11-22 10:25 | Emergency (ER) | payer OTHER ==
[~2021-11-22] VITALS: Ht 182.9 cm; Wt 81.7 kg
[~2021-11-22 10:25] MED LIST changes: +BUPR150ER PO; +Compro25 MG PR; +FAMO20 PO; +ZOLP10 PO
[2021-11-22 10:47] LABS: BASOPHILS ABSOLUTE AUTO 0.04 K/mm3 (0.00-0.23); BASOPHILS PERCENT AUTO 0 % (0-2); EOSINOPHILS ABSOLUTE AUTO 0.05 K/mm3 (0.00-0.68); EOSINOPHILS PERCENT AUTO 0 % (0-6); IMMATURE GRAN ABSOLUTE AUTO 0.17 K/mm3 (0.00-0.10); IMMATURE GRAN PERCENT AUTO 1 % (0-1); LYMPHOCYTES ABSOLUTE AUTO 1.55 K/mm3 (0.84-5.20); LYMPHOCYTES PERCENT AUTO 8 % (21-46); MONOCYTES ABSOLUTE AUTO 1.17 K/mm3 (0.16-1.47); MONOCYTES PERCENT AUTO 6 % (4-13); NEUTROPHILS ABSOLUTE AUTO 15.91 K/mm3 (1.96-9.15); NEUTROPHILS PERCENT AUTO 84 % (41-73); Platelet Count 318 K/mm3 (150-400); White Blood Cell Count 18.89 K/mm3 (4.00-11.30)
[2021-11-22 11:27] LABS: Albumin, Blood 2.1 g/dL (3.4-5.0); Albumin/Globulin Ratio 0.7 (0.8-1.8); Bilirubin, Total 12.7 mg/dL (0.1-1.0); Bun/Creatinine Ratio 68.5 (12.0-20.0); Calcium, Blood 8.5 mg/dL (8.5-10.1); Creatinine, Blood 0.72 mg/dL (0.60-1.20); Globulin, Blood 2.9 g/dL (2.2-4.0); Potassium, Blood 3.7 mmol/L (3.5-5.5)
[2021-11-22 11:55] LABS: Red Blood Cell Count 2.17 M/mm3 (4.30-5.90)
[2021-11-22 11:56] LABS: Mean Corpuscular HGB 24.9 pg (26.0-34.0); Mean Corpuscular HGB Conc 32.9 g/dL (31.5-36.5); Mean Corpuscular Volume 76 fL (80-100); RDW Coefficient Variation 31.1 % (11.7-14.2); RDW Standard Deviation 80.6 fL (35.1-46.3)
[2021-11-22 11:58] LABS: Hemoglobin 5.4 g/dL (13.5-17.5)
[2021-11-22 11:59] LABS: Hematocrit 16.4 % (37.0-53.0)
--- NOTE | 2021-11-22 16:33 | NUR ---
pt very fragile coughed up large amout of old blood clots this morning. feels preassure in abdomen. aggitted and exhausted and stuggling to track conversation. He states not going tomorrow we all know where this is going. pt want hospice review of choices he had no preferance. Called all three agencies who could do first intake. Pt willing to go home with family tonight with medications. intake set for first thing in the morning. extensive education with his girlfriend on medication. She has cargiving experince and will help. Education on who to call if he falls or expires. will follow up with [facility] on help. [place] team called and set appointment for 1030. family at home with patient.
== END 2021-11-22 14:19 | disposition home or self-care (01) ==
LOC: ER 10:25
PROVIDERS: Emergency Medicine
DX: K72.90 Hepatic failure, unspecified without coma (principal); D64.9 Anemia, unspecified; Z51.5 Encounter for palliative care; J44.9 Chronic obstructive pulmonary disease, unspecified; I10 Essential (primary) hypertension; I25.10 Atherosclerotic heart disease of native coronary artery without angina pectoris; Z79.899 Other long term (current) drug therapy
CPT/HCPCS: 36415; 80053; 82140; 85025; J1170; J2550